=== PATIENT | female | born 1945 | race Caucasian/White ===

== ENCOUNTER → 2016-11-24 | Outpatient (CLI) | payer OTHER ==
[~2016-11-24] VITALS: Ht 165.1 cm; Wt 62.2 kg
[~2016-11-24] MED LIST: CYANOCOBALAM1000 MCG PO; DOXEPIN HCL10 MG PO; FISH OIL 1,0001 EAC7 PO; VITAMIN D32000 UNI1 PO; VITAMIN E400 UNIT PO; XANAX0.5 MG PO
== END | disposition home or self-care (01) ==
LOC: AMB 11:55
PROC: 0DBL8ZX Excision of Transverse Colon, Via Natural or Artificial Opening Endoscopic, Diagnostic (ICD-10-PCS; principal; 2016-11-24)
DX: Z12.11 Encounter for screening for malignant neoplasm of colon (principal); K63.5 Polyp of colon; Z86.010 Personal history of colon polyps; Z88.2 Allergy status to sulfonamides
CPT/HCPCS: 88305; 93005